=== PATIENT | female | born 1950 | race Caucasian/White ===

== ENCOUNTER 2018-07-06 05:58 | Day surgery (SDC) | payer OTHER ==
--- NOTE | 2018-06-24 14:15 | HP ---
DATE OF ADMISSION: 07/06/2018 DATE OF DICTATION: 06/16/2018 BRIEF HISTORY: This is a 68-year-old female who has had multiple lipomas excised in the past. She now presents with a soft tissue mass overlying her bicep. Patient states the mass causes her discomfort when she works out, and she wishes to have this removed. PAST MEDICAL HISTORY: Significant for biliary issues. She has hypercholesterolemia. She denies coronary artery disease, hypertension, and diabetes. PAST SURGICAL HISTORY: Bilateral breast implants. ALLERGIES: SEAFOOD. SOCIAL HISTORY: Patient does not smoke. She drinks socially. MEDICATIONS: None. PHYSICAL EXAMINATION: Right Upper Extremity: Patient has a fair amount of fat overlying the right upper arm between elbow and shoulder. She has an excessive amount on the posterior aspect. Along the anterior aspect just anterior to the bicep is a well-demarcated, quarter-size, soft tissue mass. The mass is mobile and nontender. IMPRESSION/PLAN: Suspect lipoma of the upper arm. We will plan for excision in the operating room. The indications, alternatives, and complications of the procedure discussed. Questions answered. Matthew ZHANG [id number] cc: Louis Maravilla MD
[2018-06-27 14:08] VITALS: BMI 28.5
[2018-07-06] MEDS ORDERED: PROPOFOL 20 ML ONE ×2 (07:38)
[2018-07-06] MEDS ORDERED: MIDAZOLAM HCL 2 MG/2 ML SINGLE DOSE VIAL ONE (07:39)
[2018-07-06] MEDS ORDERED: SUCCINYLCHOLINE CHLORIDE 200 MG/10 ML VIAL ONE (07:39)
[2018-07-06] MEDS ORDERED: LIDOCAINE 1%/EPI 1:100000 (20 ML MULTI DOSE VIAL) ONE (07:58)
[2018-07-06] MEDS ORDERED: KETOROLAC TROMETHAMINE 30 MG/1 ML VIAL ONE (08:05)
[2018-07-06] MEDS ORDERED: ONDANSETRON 4 MG/2 ML VIAL ONE (08:05)
[2018-07-06] MEDS ORDERED: DEXAMETHASONE SOD PHOSPHATE 4 MG/1 ML VIAL ONE (08:05)
[2018-07-06] MEDS ORDERED: ceFAZolin SODIUM 1 GM VIAL ONE (08:05)
[2018-07-06] MEDS ORDERED: ONDANSETRON 4 MG/2 ML VIAL IVPUSH PRN (08:42)
[2018-07-06] MEDS ORDERED: PROMETHAZINE HCL 25 MG/1 ML VIAL IVPUSH PRN (08:42)
[2018-07-06] MEDS ORDERED: oxyCODONE HCL 5 MG TABLET PO PRN ×2 (08:42)
--- NOTE | 2018-07-06 10:03 | OP ---
DATE OF OPERATION: 07/06/2018 PREOPERATIVE DIAGNOSIS: Lipoma, right upper extremity. POSTOPERATIVE DIAGNOSIS: Lipoma, right upper extremity. PROCEDURE: Excision of right intramuscular lipoma, 4-cm intermediate wound closure. SURGEON: Gio Ya M.D. LOCKSTITCH SLEEVE SETTER: None. ANESTHESIA: Micah Lugo M.D. (MAC/1% lidocaine without epinephrine, approximately 8 mL). ESTIMATED BLOOD LOSS: Minimal. SPECIMEN: Lipoma. INDICATIONS/PROCEDURE: This is a 68-year-old female with soft tissue mass, right upper extremity. It is causing her discomfort. She wishes to have this removed. Patient was appropriately positioned on the operating room table. After adequate IV sedation, the area was prepped and draped in the usual sterile fashion with ChloraPrep. Lidocaine 1% without epinephrine was used for local anesthesia. A 4-cm vertical incision was made deep in the subcutaneous tissue. The lipoma identified and portion of the lipoma was noted to be intramuscular. The lipoma was teased out of the musculature with blunt dissection. Next, the lipoma was sharply excised. Hemostasis was achieved with direct pressure as needed. The frayed fascia was then reapproximated with interrupted 3-0 Vicryl suture, the dermis reapproximated with interrupted inverted 3-0 Vicryl suture, and the skin closed with 4-0 subcuticular Biosyn followed by Dermabond. At the conclusion of this case, sponge and instrument counts were correct. ATTESTATION: Brief operative note handwritten on the preprinted form. No narcotics to be given. GIO YA M.D. [id number] CC: Matthew Schaefer
[2018-07-06 10:26] VITALS: TEMP 97.9
[2018-07-06 10:37] VITALS: BP 116/59; PULSE 53
--- NOTE | 2018-07-11 15:15 | PATH ---
Surgical Pathology Report Patient Name: JUNE TANG [facility]. Rec. #: [id number] /Age/Gender: 1950 (Age: 68) / F Account: [id number] Location: [facility] Taken: 07/06/2018 Received: 07/06/2018 Reported: 07/11/2018 Physicians: Gio Reed Specimen(s) Received LIPOMA RIGHT ARM Clinical History Lipoma right arm Final Diagnosis LIPOMA, RIGHT ARM, EXCISION: MATURE ADIPOSE TISSUE, CONSISTENT WITH LIPOMA. Electronically Signed Jackelin Duckworth M.D. Gross Description Received in formalin labeled "lipoma right arm," is a 2.8 x 2.3 x 1.3 cm portion of yellow, lobulated adipose tissue. Sectioning reveals homogeneous yellow, smooth fat. No areas of hemorrhage or necrosis are identified. Dietitian Helper sections are submitted in one cassette. 07/07/2018 and asael07/07/2018
== END 2018-07-06 10:37 | disposition home or self-care (01) ==
LOC: FASU 05:58
PROVIDERS: ATTEND Surgery
PROC: 0KB70ZZ Excision of Right Upper Arm Muscle, Open Approach (ICD-10-PCS; principal; 2018-07-06 08:25)
DX: D17.9 Benign lipomatous neoplasm, unspecified (principal)
CPT/HCPCS: 88304-TC; 94760